=== PATIENT | male | born 1970 | race Caucasian/White ===

== ENCOUNTER 2016-12-03 08:24 | Day surgery (SDC) | payer BC ==
[~2016-12-03 08:24] MED LIST: LIDOCAINE W/ SODIUM BICARB 0.5 ML SYR ONE; Lactated Ringers 1,000 ML PRIMARY IV ONE; Lidocaine Inj 1% 20 ML ONE
[2016-12-03] MEDS ORDERED: MIDAZOLAM 5 MG/1 ML ONE (09:31)
[2016-12-03] MEDS ORDERED: fentaNYL Inj 100 MCG/2 ML VIAL ONE (09:31)
[2016-12-03] MEDS ORDERED: SODIUM BICARBONATE 8.4% - 50 ML VIAL ONE (09:40)
[2016-12-03] MEDS ORDERED: NEOMYCIN/BACITRACIN/POLYMYXIN 0.9 GM OINT PACKET TOPICAL ONE ×2 (09:58→10:21)
[2016-12-03] MEDS ORDERED: KETOROLAC 30 MG/1 ML VIAL ONE (10:09)
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
[2016-12-03 11:39] VITALS: RESP 20
[2016-12-03] MEDS ORDERED: HYDROcodone-APAP 5 MG -325 MG TABLET PO ONE (11:50)
[2016-12-03 11:56] VITALS: TEMP 98
== END 2016-12-03 11:55 | disposition home or self-care (01) ==
LOC: SDSC 08:24
PROVIDERS: ATTEND Surgery
DX: Z30.2 Encounter for sterilization (principal)
CPT/HCPCS: 55250; J1885; J2704; J3010; J2001; J2250; J7120

== ENCOUNTER → 2017-01-23 | Outpatient (CLI) | payer BC | LOC: MOB LAB 16:26 | PROVIDERS: ATTEND Surgery | DX: Z30.8 Encounter for other contraceptive management (principal); Z98.52 Vasectomy status | CPT/HCPCS: 89321 ==